=== PATIENT | female | born 1985 | race American Indian/Alaskan Native ===

== ENCOUNTER 2018-10-04 11:09 | Emergency (ER) | payer OTHER, MEDICAID ==
[2018-10-04 13:59] LABS: Basophils % (Auto) 0.3 % (0.0-1.8); Eosinophils # (Auto) 0.1 K/mm3 (0.0-0.4); Eosinophils % (Auto) 1.1 % (0.0-4.3); Hematocrit 32.6 % (30.3-42.9); Hemoglobin 10.8 gm/dl (10.1-14.3); Lymphocytes # (Auto) 2.4 K/mm3 (1.2-5.4); Lymphocytes % (Auto) 41.1 % (13.4-35.0); Mean Corpuscular HGB Conc 33 % (30-34); Mean Corpuscular Volume 80 fl (79-97); Monocytes # (Auto) 0.4 K/mm3 (0.0-0.8); Monocytes % (Auto) 5.9 % (0.0-7.3); Platelet Count 238 K/mm3 (140-440); Red Blood Count 4.06 M/mm3 (3.65-5.03); Red Cell Distribution Width 14.5 % (13.2-15.2)
[2018-10-04 14:28] LABS: Alanine Aminotransferase 14 units/L (7-56); Albumin 4.3 g/dL (3.9-5); BUN/Creatinine Ratio 18; Blood Urea Nitrogen 9 mg/dL (7-17); Calcium 9.1 mg/dL (8.4-10.2); Hemolysis Index 5
[2018-10-04 14:57] LABS: Bacteria,Urine 1+ /HPF (Negative); Bilirubin,Urine NEG (Negative); Blood,Urine SM (Negative); Color,Urine Yellow (Yellow); Mucus,Urine FEW /HPF; Protein,Urine <15 mg/dL mg/dL (Negative); Urobilinogen,Urine < 2.0 mg/dL (<2.0)
--- NOTE | 2018-10-04 14:57 | Emergency Department Report ---
HPI - General Chief Complaint: Dizziness Time Seen by Provider: 10/04/18 13:36 - HPI HPI: This is a 33-year-old female presents to ED complaining of DC and lightheaded that started this morning. Patient states she was at work standing over a conveyor belt. Patient states that steam gas was released to clean the lid is shortly after that she had to step back as reported in and she could not breathe and she had to leave the building. Patient states she is advised to rinse and chest pain shortly after that. She denies feeling like this before, and thinks that whatever chemical was released while she was at work also cause of her feeling this way. She denies loss of consciousness, shortness of breath, fever chills or any other symptoms. ED Past Medical Hx - Past Medical History Previous Medical History?: No - Surgical History Past Surgical History?: No - Social History Smoking Status: Never Smoker Substance Use Type: None - Medications Home Medications: Home Medications Medication Instructions Recorded Confirmed Last Taken Type ALBUTEROL Inhaler(NF) [VENTOLIN 1 - 2 puff IH PRN #1 inha 10/04/18 Unknown Rx Inhaler(NF)] Ibuprofen [Motrin] 600 mg PO Q8H #20 tablet 10/04/18 Unknown Rx ED Review of Systems ROS: Stated complaint: CHEST PAIN/EXPOSURE CHLORINE Other details as noted in HPI Constitutional: denies: chills, fever Eyes: denies: eye pain, eye discharge, vision change ENT: denies: ear pain, throat pain Respiratory: denies: cough, shortness of breath, wheezing Cardiovascular: denies: chest pain, palpitations Endocrine: no symptoms reported Gastrointestinal: denies: abdominal pain, nausea, vomiting, diarrhea Genitourinary: denies: urgency, dysuria, discharge Musculoskeletal: denies: back pain, joint swelling, arthralgia Skin: denies: rash, lesions Neurological: denies: headache, weakness, paresthesias Psychiatric: denies: anxiety, depression Hematological/Lymphatic: denies: easy bleeding, easy bruising Physical Exam - Physical Exam Vital Signs: Vital Signs 10/04/18 11:22 Temperature 97.6 F Pulse Rate 87 Respiratory 18 Rate Blood Pressure 150/96 O2 Sat by Pulse 97 Oximetry Physical Exam: GENERAL: Alert and oriented x3, no apparent distress, Normal Gait, atraumatic. HEAD: Head is normocephalic and a-traumatic. EYES: Extra ocular muscles are intact. Pupils are equal, round, and reactive to light and accommodation. NECK: Supple. Non edematous, No carotid bruits. No lymphadenopathy or thyromegaly. No C-spine tenderness LUNGS: Symetrical with respiration, No wheezing, no rales or crackles, CTAB. HEART: S1, S2 present, regular rate and rhythm without murmur, no rubs, no gallops. Non tender to palpation EXTREMITIES/MUSCULOSKELETAL: No cyanosis, clubbing, rash, lesions or edema. Full ROM bilaterally. UE/LE Pulses 2+ bilaterally. LE and UE 5+ strength bilaterally, straight leg raise negative bilaterally NEUROLOGIC: The patient is cooperative with no focal neurologic deficits. Cranial nerves II through XII are grossly intact. Normal speech. SKIN: Warm and dry, No lesions, No ulceration or induration present. ED Course Vital Signs 10/04/18 11:22 Temperature 97.6 F Pulse Rate 87 Respiratory 18 Rate Blood Pressure 150/96 O2 Sat by Pulse 97 Oximetry ED Medical Decision Making - Lab Data Result diagrams: 10/04/18 13:48 10/04/18 13:48 - Radiology Data Radiology results: report reviewed, image reviewed Fluoro Time In Minutes: FINAL REPORT EXAM: XR CHEST ROUTINE 2V HISTORY: cp upt ordered COMPARISON: None. TECHNIQUE: Frontal and lateral views of the chest. FINDINGS: The cardiomediastinal silhouette is normal in appearance. The lungs are clear without focal consolidation. There is no pleural effusion or pneumothorax. There is no acute soft tissue or osseous abnormality. IMPRESSION: No acute cardiopulmonary disease. Transcribed By: CHANDNI Dictated By: ALE TORRSE MD Electronically Authenticated By: ALE TORRES MD Signed Date/Time: 10/04/18 9002 - Medical Decision Making 33-year-old female presents with an episode of dizziness/lightheadedness after inhalation of concern chemical unknown to her. Labs ordered. Chest x-ray ordered. Due to patient systems no chest pain to rule out any cardio/pulmonary process. All labs within normal limits, patient's vital signs are normal throughout ED stay she stable. Patient was in no acute or respiratory distress throughout ED stay. Discussed patient then discussed happen again if she is exposed to the same gas. Patient states that this is her place of work and she works [employer]. This patient to wear mask while she is at work. Discussed the follow-up with primary care physician will refer. Patient understands instructions given. Critical care attestation.: If time is entered above; I have spent that time in minutes in the direct care of this critically ill patient, excluding procedure time. ED Disposition Clinical Impression: Episodic lightheadedness Disposition: DC-01 TO HOME OR SELFCARE Is pt being admited?: No Does the pt Need Aspirin: No Condition: Stable Instructions: Lightheadedness (ED), Dizziness (ED) Additional Instructions: Make sure to follow up with the primary care physician as discussed. Take all your medications as you've been prescribed. If you have any worsening symptoms or develop new symptoms please return to ED immediately. Prescriptions: ALBUTEROL Inhaler(NF) [VENTOLIN Inhaler(NF)] 1 - 2 puff IH PRN #1 inha Ibuprofen [Motrin] 600 mg PO Q8H #20 tablet Referrals: PRIMARY CAREMD [Primary Care Provider] - 3-5 Days ERIKA JAY MD [Referring] - 3-5 Days [facility] [place] [Outside] - 3-5 Days Forms: Accompanied Note, Work/School Release Form(ED) Time of Disposition: 17:11
--- NOTE | 2018-10-04 16:44 | XRay Report ---
FINAL REPORT EXAM: XR CHEST ROUTINE 2V HISTORY: cp upt ordered COMPARISON: None. TECHNIQUE: Frontal and lateral views of the chest. FINDINGS: The cardiomediastinal silhouette is normal in appearance. The lungs are clear without focal consolidation. There is no pleural effusion or pneumothorax. There is no acute soft tissue or osseous abnormality. IMPRESSION: No acute cardiopulmonary disease.
[2018-10-04 17:23] VITALS: BP 141/90
== END 2018-10-04 17:22 | disposition home or self-care (01) ==
LOC: ED 11:09
DX: R42 Dizziness and giddiness (principal); Z88.0 Allergy status to penicillin
CPT/HCPCS: 36415; 71046; 80053; 81001; 84703; 85025; 93005; 93010; 99284